=== PATIENT | female | born 1980 | race Caucasian/White ===

== ENCOUNTER 2019-12-05 06:21 | Emergency (ER) | payer OTHER ==
[2019-12-05] MEDS ORDERED: MAG HYDROX/AL HYDROX/SIMETH 30 ML UDC PO STA (06:39)
[2019-12-05] MEDS ORDERED: LIDOCAINE VISCOUS 2% 15 ML UDC MM STA (06:39)
[2019-12-05] MEDS ORDERED: ONDANSETRON 4 MG/2 ML VIAL IVP STA ×2 (06:39→06:47)
--- NOTE | 2019-12-05 06:45 | ED Physician Documentation ---
History of Present Illness - Stated complaint Stated Complaint: ABD PAIN - Chief complaint Chief Complaint: Abd Pain - History obtained from History obtained from: Patient - Additonal information Additional information: The patient is a 39-year-old female presents with epigastric pain with nausea and vomiting. Denies fevers she has had a previous bilateral tubal ligation denies any signs of jaundice denies any flank pain or dysuria. Review of Systems Constitutional: reports: Reviewed and negative Eyes: reports: Reviewed and negative Ears: reports: Reviewed and negative Nose: reports: Reviewed and negative Throat: reports: Reviewed and negative Cardiac: reports: Reviewed and negative Respiratory: reports: Reviewed and negative GI: reports: Abdominal Pain, Nausea, Vomiting : reports: Reviewed and negative Skin: reports: Reviewed and negative Musculoskeletal: reports: Reviewed and negative Neurologic: reports: Reviewed and negative Psychiatric: reports: Reviewed and negative Endocrine: reports: Reviewed and negative Immunocompromised: reports: Reviewed and negative PD PAST MEDICAL HISTORY - Present Medications Home Medications: Ambulatory Orders Medication Instructions Recorded Confirmed Amox/Clav 875/125 [Augmentin] 1 each PO Q12H #14 tablet 12/05/19 Hydrocodone/Acetaminophen 1 - 2 tab PO Q6H PRN #15 tablet 12/05/19 [Hydrocodone-Acetamin 5-325 mg] - Allergies Allergies/Adverse Reactions: Allergies Allergy/AdvReac Type Severity Reaction Status Date / Time No Known Drug Allergies Allergy Verified 12/05/19 06:31 PD ED PE NORMAL - Vitals Vital signs reviewed: Yes - General General: Alert and oriented X 3, No acute distress - HEENT HEENT: PERRL - Neck Neck: Supple, no meningeal sign - Cardiac Cardiac: RRR, No murmur - Respiratory Respiratory: Clear bilaterally - Abdomen Abdomen: Normal bowel sounds, Soft, Other (In the right upper quadrant and the epigastrium no midline abdominal pulsatile mass) - Back Back: No CVA TTP, No spinal TTP - Derm Derm: Normal color, Warm and dry, No rash - Extremities Extremities: No deformity - Neuro Neuro: Alert and oriented X 3 - Psych Psych: Normal mood, Normal affect Results - Vitals Vitals: Vital Signs - 24 hr 12/05/19 12/05/19 12/05/19 06:25 08:18 10:00 Temperature 36.2 C L Heart Rate 78 106 H 100 Respiratory 16 18 18 Rate Blood Pressure 170/100 H 124/86 H 123/88 H O2 Saturation 99 98 99 12/05/19 12/05/19 12:00 14:00 Temperature Heart Rate 77 72 Respiratory 18 17 Rate Blood Pressure 130/86 H 133/91 H O2 Saturation 99 100 Oxygen O2 Source Room air - Labs Labs: Laboratory Tests 12/05/19 12/05/19 12/05/19 06:50 06:50 06:50 WBC 12.0 H RBC 4.65 Hgb 13.7 Hct 42.3 MCV 91.0 MCH 29.5 MCHC 32.4 RDW 13.2 Plt Count 371 MPV 10.3 Neut # (Auto) 10.8 H Lymph # (Auto) 0.9 L Tama # (Auto) 0.2 Eos # (Auto) 0.0 Baso # (Auto) 0.1 Absolute Nucleated RBC 0.00 Nucleated RBC % 0.0 PT 12.6 INR 1.1 APTT 31.1 Sodium 136 Potassium 3.8 Chloride 100 L Carbon Dioxide 25 Anion Gap 11.0 BUN 15 Creatinine 0.6 Estimated GFR (MDRD) 111 Glucose 151 H Lactic Acid Calcium 9.9 Total Bilirubin 0.5 AST 18 ALT 23 Alkaline Phosphatase 78 Total Protein 8.8 H Albumin 4.8 Globulin 4.0 Albumin/Globulin Ratio 1.2 Lipase 36 Urine Color Urine Clarity Urine pH Ur Specific Saffell Urine Protein Urine Glucose (UA) Urine Ketones Urine Occult Blood Urine Nitrite Urine Bilirubin Urine Urobilinogen Ur Leukocyte Esterase Ur Microscopic Review Urine Culture Comments Urine HCG, Qual 12/05/19 12/05/19 12/05/19 07:15 08:01 12:43 WBC RBC Hgb Hct MCV MCH MCHC RDW Plt Count MPV Neut # (Auto) Lymph # (Auto) Tama # (Auto) Eos # (Auto) Baso # (Auto) Absolute Nucleated RBC Nucleated RBC % PT INR APTT Sodium 137 Potassium 4.2 Chloride 105 Carbon Dioxide 23 Anion Gap 9.0 BUN 11 Creatinine 0.6 Estimated GFR (MDRD) 111 Glucose 102 H Lactic Acid 1.6 Calcium 8.8 Total Bilirubin 0.4 AST 20 ALT 23 Alkaline Phosphatase 71 Total Protein 7.5 Albumin 4.0 Globulin 3.5 Albumin/Globulin Ratio 1.1 Lipase 33 Urine Color YELLOW Urine Clarity CLEAR Urine pH 7.5 Ur Specific Saffell 1.015 Urine Protein TRACE Urine Glucose (UA) NEGATIVE Urine Ketones TRACE Urine Occult Blood TRACE-INTA Urine Nitrite NEGATIVE Urine Bilirubin NEGATIVE Urine Urobilinogen 0.2 (NORMAL) Ur Leukocyte Esterase NEGATIVE Ur Microscopic Review NOT INDICATED Urine Culture Comments NOT INDICATED Urine HCG, Qual NEGATIVE PD MEDICAL DECISION MAKING - ED course Complexity details: considered differential (Cholecystitis, pancreatitis, peptic ulcer disease.), other (patient signed out at shift change to Dr. Obrien.) Departure - Departure Disposition: 01 Home, Self Care Clinical Impression: Cholecystitis, Choledocholithiasis with acute cholecystitis with obstruction Abdominal pain Qualifiers: Abdominal location: unspecified location Qualified Code(s): R10.9 - Unspecified abdominal pain Condition: Stable Instructions: Gallstones Dc, ED Gallbladder Infec Conf Follow-Up: Balwinder Mancini MD [Provider Admit Priv/Credential] - Prescriptions: Amox/Clav 875/125 [Augmentin] 1 each PO Q12H #14 tablet Hydrocodone/Acetaminophen [Hydrocodone-Acetamin 5-325 mg] 1 - 2 tab PO Q6H PRN #15 tablet PRN Reason: Pain Comments: I discussed her case today with ABEL Kerr in [place]. They plan to have the procedure done Tuesday. They will call you. Until then you need to eat a very low-fat low protein diet and nothing to eat after midnight on , tomorrow night. Return if worsening or if pain is uncontrolled by the pain medications. Return immediately if you develop a fever. Discharge Date/Time: 12/05/19 14:47
[2019-12-05] MEDS ORDERED: SODIUM CHLORIDE 0.9% 1,000 ML IV STA (06:47)
[2019-12-05] MEDS ORDERED: MORPHINE 2 MG/ML CARPUJECT IVP STA (06:47)
[2019-12-05 07:02] LABS: BASOPHILS # (AUTO) 0.1 10^3/uL (0.0-0.1); BASOPHILS % (AUTO) 0.4 %; HGB - HEMOGLOBIN 13.7 g/dL (12.0-16.0); LYMPHOCYTES # (AUTO) 0.9 10^3/uL (1.5-3.5); LYMPHOCYTES % (AUTO) 7.4 %; MEAN CORPUSCULAR HEMOGLOBIN 29.5 pg (27.0-31.0); MEAN CORPUSCULAR HGB CONC 32.4 g/dL (32.0-36.0); MEAN PLATELET VOLUME 10.3 fL (7.9-10.8); MONOCYTES # (AUTO) 0.2 10^3/uL (0.0-1.0); MONOCYTES % (AUTO) 1.5 %; NEUTROPHILS # (AUTO) 10.8 10^3/uL (1.5-6.6); NEUTROPHILS % (AUTO) 90.2 %; PLT - PLATELET COUNT 371 10^3/uL (130-450); RED BLOOD COUNT 4.65 10^6/uL (4.20-5.40); RED CELL DISTRIBUTION WIDTH 13.2 % (12.0-15.0)
[2019-12-05 07:11] LABS: ALBUMIN 4.8 g/dL (3.2-5.5); ALBUMIN/GLOBULIN RATIO 1.2 (1.0-2.2); BILIRUBIN,TOTAL 0.5 mg/dL (0.2-1.0); CALCIUM 9.9 mg/dL (8.5-10.3); CREATININE 0.6 mg/dL (0.4-1.0); TOTAL PROTEIN 8.8 g/dL (6.7-8.2)
[2019-12-05 07:13] LABS: INR 1.1 (0.8-1.2); PT - PROTHROMBIN TIME 12.6 secs (9.9-12.6)
[2019-12-05 07:20] LABS: PARTIAL THROMBOPLASTIN TIME 31.1 secs (24.9-33.3)
[2019-12-05] MEDS ORDERED: HYDROmorphone 1 MG/ML CARPUJECT IVP STA (07:21)
--- NOTE | 2019-12-05 07:23 | ED Physician Documentation ---
ED Addendum - Addendum Addendum: 12/05/19 07:22 This is a relatively healthy 39-year-old woman with history of tubal ligation but no other abdominal surgeries who presents with severe epigastric pain that is nonradiating since 11:30 PM last night associated with nausea and one episode of nonbloody vomiting. She has had similar episodes in the past but were much milder and very occasional. Patient received in signout from Dr. Chung at shift change, she had already had some morphine and Zofran and GI cocktail with mild improvement in her pain. On examination she has moderate epigastric and right upper quadrant tenderness with negative Rivas sign. 12/05/19 08:19 CT abdomen and pelvis with IV contrast was reviewed contemporaneously by me showing cholelithiasis with borderline wall thickening, potential stone in the neck. An ultrasound was ordered. She was pain-free after a subsequent dose of IV Dilaudid. 12/05/19 09:12 Ultrasound prelim showed cholecystitis with wall thickening but no fluid, but also concerning for small choledocholithiasis with a 7 mm duct. At this juncture the patient was discussed by phone with the on-call surgeon Dr. Mancini who recommended an MRCP and Zosyn in the interim. She was still pain-free at this time without further narcotic analgesia. 12/05/19 12:36 MRCP was done and shows cholecystitis with stones but also choledocholithiasis with mild intra-and extrahepatic biliary ductal dilatation. I did repeat a chemistry panel to see if her liver enzymes are coming up, but I spoke with the surgeon again who felt she probably needed to go somewhere with ERCP capability and [facility] was called. She had received Zosyn in the interim. She remains pain-free. 12/05/19 13:11 I spoke with the on-call market garden worker at [facility], he does not do ERCP. Patient considering options of where to call next. 12/05/19 13:11 12/05/19 14:11 I spoke with ABEL Kerr in [place], there was a delay as he was in a procedure when we initially called. He is trying to figure out the best way to get her taking care of. He will call me back. 12/05/19 14:26 He called me back, they plan to do the procedure on Tuesday. Requested discharge on antibiotics and he was okay with Augmentin. They will call her to work out logistics. Diagnosis # 1 choledocholithiasis 2. cholecystitis Disposition Home pending outpatient follow-up condition stable.
[2019-12-05] MEDS ORDERED: IOVERSOL 320 100 ML VIAL IVP ONE ×2 (07:38→11:16)
--- NOTE | 2019-12-05 08:13 | CT Report ---
PROCEDURE: Abdomen/Pelvis W INDICATIONS: IV only, upper abd pain CONTRAST: IV CONTRAST: Optiray 320 ml: 100 PO CONTRAST: *NO PO CONTRAST TECHNIQUE: After the administration of intravenous contrast, 5 mm thick sections acquired from the diaphragms to the symphysis. 5 mm thick coronal and sagittal reformats were acquired. For radiation dose reducti on, the following was used: automated exposure control, adjustment of mA and/or kV according to lenny ent size. COMPARISON: None. FINDINGS: Image quality: Excellent. ABDOMEN: Lung bases: Lung bases are clear. Heart size is normal. Solid organs: Liver and spleen are normal in size and enhancement. Gallbladder demonstrates multipl e stones. Wall appears borderline thickened. In addition, there appears to be presence of stone at th e superior most origin of the common bile duct seen on coronal view. No intrahepatic biliary dilation . Pancreas enhances normally. No adrenal nodules. Kidneys demonstrate normal size and enhancement, without hydronephrosis. Peritoneum and bowel: Bowel loops demonstrate normal wall thickness and caliber. No free fluid or a ir. Nodes and vessels: No retroperitoneal or mesenteric adenopathy by size criteria. Aorta and inferior vena cava are normal in size. Miscellaneous: No ventral hernias. PELVIS: Genitourinary: Bladder wall thickness is normal. Miscellaneous: No inguinal hernias or adenopathy. Bones: No suspicious bony lesions. No vertebral body compression fractures. IMPRESSION: 1. Cholelithiasis with borderline appearance of wall thickening. Cholecystitis cannot be excluded. Ul trasound is recommended for further evaluation of wall thickness. In addition, potential stone is not ed at the origin of the common bile duct/gallbladder junction. Reviewed by: Naomi Romero MD on 12/05/2019 8:12 AM PDT Approved by: Naomi Romero MD on 12/05/2019 8:12 AM PDT Station ID: [id number]
[2019-12-05 08:24] LABS: BILIRUBIN,URINE NEGATIVE (NEGATIVE); GLUCOSE, URINE (UA) NEGATIVE (NEGATIVE); KETONES,URINE (UA) TRACE mg/dL (NEGATIVE); LEUKOCYTE ESTERASE, URINE NEGATIVE (NEGATIVE); NITRITE,URINE NEGATIVE (NEGATIVE); OCCULT BLOOD,URINE TRACE-INTA (NEGATIVE); PH,URINE 7.5 PH (5.0-7.5); PROTEIN,URINE TRACE mg/dL (NEGATIVE); UROBILINOGEN,URINE 0.2 (NORMAL) E.U./dL (NORMAL)
[2019-12-05 08:29] LABS: CLARITY,URINE CLEAR (CLEAR); HCG UR QUAL NEGATIVE
[2019-12-05] MEDS ORDERED: PIPERACILLIN/TAZOBACTAM 3.375 GM in SODIUM CHLORIDE 0.9% MINIBAG 100 ML IV STA (09:11)
--- NOTE | 2019-12-05 09:47 | Ultrasound Report ---
PROCEDURE: Abdomen Limited INDICATIONS: RUQ pain TECHNIQUE: Real-time focused scanning was performed of the right upper quadrant, with image documentation. COMPARISON: CT abdomen pelvis 12/05/2019. FINDINGS: Liver is normal in size and demonstrates no discrete lesions. The gallbladder demonstrates multiple gallstones with bladder wall thickening measuring 4 to 5 mm. No discrete pericholecystic fluid or reported sonographic Rivas sign. There is intra and extrahepatic biliary ductal dilatation. The visualized common bile duct measures 7 to 8 mm distally. The filling defects are identified within the common bile duct consistent with com mon duct stones, measuring up to 8 mm. Pancreas is not well visualized sonographically. Right kidney measures 10.1 cm. No hydronephrosis. IMPRESSION: 1. Cholelithiasis with gallbladder wall thickening but no pericholecystic fluid or reported sonograph ic Rivas's sign. The findings are equivocal for acute cholecystitis and correlation is recommended c linically. 2. Intra and extra hepatic biliary ductal dilatation with choledocholithiasis demonstrated. Reviewed by: Niles Amaya MD on 12/05/2019 9:45 AM PDT Approved by: Niles Amaya MD on 12/05/2019 9:45 AM PDT Station ID: [id number]
[2019-12-05] MEDS ORDERED: GADOBUTROL 7.5 MMOL/7.5 ML VIAL ONE (10:54)
[2019-12-05] MEDS ORDERED: GADOBUTROL 7.5 MMOL/7.5 ML VIAL IVP ONE (11:57)
--- NOTE | 2019-12-05 12:29 | MRI Report ---
PROCEDURE: MRCP W/WO INDICATIONS: Pain, choledocholitiasis on sono, per surgeon CONTRAST: IV CONTRAST: Gadavist ml: 7 TECHNIQUE: Coronal ultra fast SE through the abdomen, axial 2-D spoiled GE in- and [id number], and breath-hold T2 FSE with fat saturation through the biliary system and pancreas. Oblique coronal and axial thin- slice ultra fast SE, radial thick-slab ultra fast SE centered on the extrahepatic bile ducts. COMPARISON: CT and ultrasound of the abdomen 12/05/2019 FINDINGS: Image quality: Excellent. Pancreas and biliary system: The gallbladder wall is diffusely thickened and hyperemic. The gallblad madelaine contains multiple stones of varying sizes, including an 8 mm stone at the neck. There is also a s tone in the distal cystic duct. There are multiple, at least 7, stones of varying sizes in the distal common duct, one of the largest measuring 5 mm. The common duct is dilated up to 1.3 mm and tapers a bruptly at the ampulla. The common hepatic duct is at the upper limits of normal measuring 7 mm, and there is mild diffuse intrahepatic biliary dilatation. The pancreatic duct is normal caliber and demonstrates classic ductal anatomy. The pancreas enhances normally with uniform signal. No peripancreatic fluid or inflammation. Other solid organs: The liver is normal size and demonstrates hyperemia in the gallbladder fossa. No adrenal nodules. Both kidneys are normal in size, without hydronephrosis. Nodes and vessels: No retroperitoneal or mesenteric adenopathy by size criteria. Aorta and inferior vena cava are normal in size. Bowel and peritoneum: Unenhanced bowel loops are normal in caliber. No free fluid. Lung bases: No basal pleural effusions. Heart size is normal. Bones and soft tissues: No ventral hernias. Bone marrow is of normal overall signal. IMPRESSION: 1. Cholelithiasis with MR findings of acute cholecystitis. 2. Choledocholithiasis with mild intra and extrahepatic biliary dilatation. 3. Normal pancreas without evidence of pancreatitis or ductal dilatation. Reviewed by: Nataly Varela MD on 12/05/2019 12:28 PM PDT Approved by: Nataly Varela MD on 12/05/2019 12:28 PM PDT Station ID: [id number]
[2019-12-05 13:01] LABS: ALBUMIN/GLOBULIN RATIO 1.1 (1.0-2.2); BILIRUBIN,TOTAL 0.4 mg/dL (0.2-1.0); CALCIUM 8.8 mg/dL (8.5-10.3); CREATININE 0.6 mg/dL (0.4-1.0); TOTAL PROTEIN 7.5 g/dL (6.7-8.2)
[2019-12-05 14:20] VITALS: BP 133/91
== END 2019-12-05 14:47 | disposition home or self-care (01) ==
LOC: ED 06:21
DX: K80.43 Calculus of bile duct with acute cholecystitis with obstruction (principal)
CPT/HCPCS: 36415; 74177; 74183; 76705; 80053; 81003; 81025; 83605; 83690; 85025; 85610; 85730; 96361; 96365; 96375; 99283; 99284; A9270; A9585; J1170; Q9967; 81001; 87086

== ENCOUNTER 2020-01-14 10:22 | Outpatient (CLI) | payer OTHER | END 2020-01-14 10:23 | disposition home or self-care (01) | LOC: LAB 10:22 | PROVIDERS: ATTEND Surgery | DX: Z01.812 Encounter for preprocedural laboratory examination (principal); Z20.828 Contact with and (suspected) exposure to other viral communicable diseases; K80.80 Other cholelithiasis without obstruction; K80.50 Calculus of bile duct without cholangitis or cholecystitis without obstruction ==

== ENCOUNTER 2020-01-17 12:00 | Day surgery (SDC) | payer OTHER ==
[2020-01-17] MEDS ORDERED: ceFAZolin 1 GM VIAL ONE (12:08)
[2020-01-17 12:25] LABS: HCG UR QUAL NEGATIVE
[2020-01-17] MEDS ORDERED: LACTATED RINGERS 1,000 ML IV ONE ×2 (12:43→15:07)
[2020-01-17] MEDS ORDERED: ePHEDrine 50 MG/ML VIAL IVP PRN (12:45)
[2020-01-17] MEDS ORDERED: ONDANSETRON 4 MG/2 ML VIAL IVP PRN ×2 (12:45→15:49)
[2020-01-17] MEDS ORDERED: METOCLOPRAMIDE 10 MG/2 ML VIAL IVP PRN (12:45)
[2020-01-17] MEDS ORDERED: NALOXONE 0.4 MG/ML VIAL IVP PRN (12:45)
[2020-01-17] MEDS ORDERED: MORPHINE 2 MG/ML CARPUJECT IVP PRN (12:45)
[2020-01-17] MEDS ORDERED: ATROPINE ABBOJECT 1 MG/10 ML SYRINGE IVP PRN (12:45)
[2020-01-17] MEDS ORDERED: HYDROmorphone 0.5 MG/0.5 ML SYRINGE IVP PRN (12:45)
[2020-01-17] MEDS ORDERED: fentaNYL 100 MCG/2 ML VIAL IVP PRN (12:45)
--- NOTE | 2020-01-17 12:45 | ANESTHESIA ---
Pre-Anesthesia VS, & Labs - Diagnosis cholelithiasis - Procedure laparoscopic cholecystectomy/EGD Vital Signs: Temp Pulse Resp BP Pulse Ox 36.4 C L 86 16 137/95 H 98 01/17/20 12:10 01/17/20 12:10 01/17/20 12:10 01/17/20 12:10 01/17/20 12:10 Height: 5 ft Weight (kg): 64.6 kg Body Mass Index: 27.8 BMI Classification: Overweight - NPO >8 hours - Is Patient ?: No - Lab Results Lab results reviewed: Yes Home Medications and Allergies Home Medications: Ambulatory Orders Ibuprofen [Motrin] 600 mg PO Q6H PRN 01/09/20 Ibuprofen [Motrin] 600 mg PO Q6H PRN 01/09/20 Allergies/Adverse Reactions: Allergies Allergy/AdvReac Type Severity Reaction Status Date / Time No Known Drug Allergies Allergy Verified 12/05/19 06:31 Anes History & Medical History - Anesthetic History Anesthesia Complications: reports: No previous complications Family history of Anesthesia Complications: Denies Family history of Malignant Hyperthermia: Denies - Medical History Cardiovascular: reports: None Pulmonary: reports: None Gastrointestinal: reports: GERD, Cholelithiasis Urinary: reports: None Musculoskeletal: reports: None Endocrine/Autoimmune: reports: None Skin: reports: None Smoking Status: Never smoker - Surgical History Gynecologic: Tubal ligation Exam General: Alert, Oriented x3, Cooperative Dental: WNL Mouth Openin Fingerbreadth Neck Mobility: Normal Mallampati classification: II Thyromental Distance: 4-6 cm Respiratory: Lungs clear, Normal breath sounds, No respiratory distress Cardiovascular: Regular rate Neurological: Normal speech Mental/Cognitive Status: Alert/Oriented X3, Normal for patient Cognitive Status: Within normal limits Plan Anesthesia Type: General Consent for Procedure(s) Verified and Reviewed: Yes Code Status: Attempt Resuscitation ASA classification: 2-Mild systemic disease Is this case an emergency?: No
[2020-01-17] MEDS ORDERED: LACTATED RINGERS 1,000 ML IV SCH (13:00)
[2020-01-17] MEDS ORDERED: BUPIVACAINE 0.5% PF 30 ML VIAL ONE (13:01)
[2020-01-17] MEDS ORDERED: IOTHALAMATE MEGLUMINE 50 ML VIAL ONE (13:01)
[2020-01-17] MEDS ORDERED: ACETAMINOPHEN 1,000 MG/100 ML 100 ML IV ONE (13:06)
[2020-01-17] MEDS ORDERED: fentaNYL 100 MCG/2 ML VIAL IVP ONE (13:06)
[2020-01-17] MEDS ORDERED: NEOSTIGMINE 1 MG/1 ML 10 ML MDV IVP ONE (13:06)
[2020-01-17] MEDS ORDERED: GLYCOPYRROLATE 1 MG/5 ML VIAL IVP ONE (13:06)
[2020-01-17] MEDS ORDERED: KETOROLAC 30 MG/ML VIAL IVP ONE (13:06)
[2020-01-17] MEDS ORDERED: ROCURONIUM 50 MG/5 ML VIAL IVP ONE (13:06)
[2020-01-17] MEDS ORDERED: MIDAZOLAM 2 MG/2 ML VIAL IVP ONE (13:06)
[2020-01-17] MEDS ORDERED: LIDOCAINE-MPF 2% 5 ML VIAL IM ONE (13:06)
[2020-01-17] MEDS ORDERED: ONDANSETRON 4 MG/2 ML VIAL IVP ONE (13:06)
[2020-01-17] MEDS ORDERED: PROPOFOL 200 MG/20 ML VIAL IVP ONE (13:06)
[2020-01-17] MEDS ORDERED: DEXAMETHASONE 4 MG/ML VIAL IVP ONE (13:06)
[2020-01-17] MEDS ORDERED: BUPIVACAINE 0.5% PF 30 ML VIAL SUBQ ONE ×2 (13:23→14:33)
--- NOTE | 2020-01-17 15:28 | OPERATIVE REPORT ---
Operative Report - General Procedure Date: 01/17/20 Planned Procedure: Laparoscopic cholecystectomy, possible CBDE, possible IOC, EGD with removal biliary stent Pre-Op Diagnosis: Cholelithiasis, choledocholithiasis, biliary stent Procedure Performed: Laparoscopic cholecystectomy, umbilical herniorrhaphy, EGD (no stent found) Post Op Diagnosis: Same with umbilical hernia, no biliary stent found - Procedure Note Primary Surgeon: [place] Anesthesia Provider: Fly Anesthesia Technique: General ET tube, Local (30 mL 1/2% marcaine) IV Fluids (mL): 1,000 Estimated Blood Loss (mL): 5 Drain/Tube Type: Other (None.) Indications: Symptomatic cholelithiasis/choledocholithiasis, presence of biliary stent Findings: As above. Complications: None. - Other Other Information/Narrative: Dictated operative report to follow - EGD already reported separately. Nico dictate without license.
[2020-01-17] MEDS ORDERED: HYDROcod/ACETAM 5/325 MG TABLET PO PRN (15:49)
[2020-01-17 16:06] VITALS: BP 134/86
--- NOTE | 2020-01-17 16:20 | XRAY Report ---
PROCEDURE: Abdomen 1 View X-Ray INDICATIONS: Is biliary stent in place? TECHNIQUE: 1 view of the abdomen were acquired. COMPARISON: CT chest dated 12/05/2019 FINDINGS: Surgical changes and devices: Status post cholecystectomy with surgical clips visualized in the right upper quadrant. A biliary stent is not visualized radiographically. Bowel: No pneumoperitoneum. The bowel gas pattern is nonobstructive. Soft tissues: No masses; visualized solid organ contours appear normal in size. No suspicious abdom inal calcifications. Bones: No suspicious bony abnormalities. IMPRESSION: Abdomen without acute radiographic abnormalities. Reviewed by: Romulo Dawn MD on 01/17/2020 4:18 PM PDT Approved by: Romulo Dawn MD on 01/17/2020 4:18 PM PDT Station ID: [id number]
[2020-01-17] MEDS ORDERED: HYDROcod/ACETAM 5/325 MG TABLET ONE (16:26)
--- NOTE | 2020-01-17 16:56 | ANESTHESIA POST OP EVALUATION ---
Anesthesia Post Eval - Post Anesthesia Eval Vitals: Last Vital Signs Temp 36.2 C L 01/17/20 15:49 Pulse 84 01/17/20 16:05 Resp 15 01/17/20 16:05 BP 134/86 H 01/17/20 16:05 Pulse Ox 98 01/17/20 16:05 CV Function Including HR & BP: positive: Stable Pain Control: positive: Satisfactory Nausea & Vomiting: positive: Negative Mental Status: positive: Baseline Respiratory Status: Airway Patent Hydration Status: Satisfactory
== END 2020-01-17 12:01 | disposition home or self-care (01) ==
LOC: SDS 12:00
PROVIDERS: ATTEND Surgery
PROC: 0FT44ZZ Resection of Gallbladder, Percutaneous Endoscopic Approach (ICD-10-PCS; principal; 2020-01-17 13:00)
PROC: 0DJ08ZZ Inspection of Upper Intestinal Tract, Via Natural or Artificial Opening Endoscopic (ICD-10-PCS; 2020-01-17 13:00)
DX: K80.10 Calculus of gallbladder with chronic cholecystitis without obstruction (principal); K82.8 Other specified diseases of gallbladder; K42.9 Umbilical hernia without obstruction or gangrene; Z98.51 Tubal ligation status
CPT/HCPCS: 43235; 47562; 74018; 81025; A9270; J0131; J7120